=== PATIENT | female | born 1930 | race American Indian/Alaskan Native ===

== ENCOUNTER 2017-01-19 07:45 | Outpatient (CLI) | payer MEDICARE ==
--- NOTE | 2017-01-19 11:56 | Ultrasound Report ---
ULTRASOUND ABDOMEN COMPLETE: Technique: Transabdominal ultrasound with color Doppler interrogation. History: abdominal pain. Findings: The liver is normal size, contour and echotexture. There is a few shadowing gallstones within the gallbladder and a small amount of sludge. No abnormal distention, wall thickening or surrounding fluid. The CBD measures 5 mm. The visualized portions of the pancreas including the head and proximal body are within normal limits. The kidneys demonstrate no hydronephrosis or mass. Cortical thickness and echogenicity are within normal limits bilaterally. The spleen and aorta are within normal limits. No aneurysmal dilatation is noted. No ascites. The bladder is unremarkable. IMPRESSION: Cholelithiasis.
== END 2017-01-19 07:46 | disposition home or self-care (01) ==
LOC: US 07:45
PROVIDERS: ATTEND Internal Medicine
DX: K80.20 Calculus of gallbladder without cholecystitis without obstruction (principal)
CPT/HCPCS: 76700

== ENCOUNTER 2017-05-31 12:40 | Outpatient (CLI) | payer MEDICARE ==
--- NOTE | 2017-06-01 10:29 | Vascular Lab Report ---
Left Lower Extremity Venous Duplex Study: Reason for Exam: Pain of the left lower extremity. Comments on the Right: A limited duplex study was done of the proximal veins of the right lower extremity. All veins visualized are freely compressible without evidence of internal echogenicity. Flow is spontaneous and phasic throughout. No evidence of acute or chronic thrombus is seen in any of the vessels visualized. Comments on the Left: All veins visualized are freely compressible without evidence of internal echogenicity. Flow is spontaneous and phasic throughout. No evidence of acute or chronic thrombus is seen in any of the vessels visualized. Echogenic complex structure noted about the knee. Clinical correlation recommended. Impression: No evidence of acute or chronic deep venous thrombosis in the left lower extremity.
== END 2017-05-31 12:41 | disposition home or self-care (01) ==
LOC: VAS 12:40
PROVIDERS: ATTEND Specialist
DX: M79.605 Pain in left leg (principal); I10 Essential (primary) hypertension; E78.00 Pure hypercholesterolemia, unspecified; J18.9 Pneumonia, unspecified organism; D64.9 Anemia, unspecified

== ENCOUNTER 2017-09-14 14:29 | Emergency (ER) | payer MEDICARE ==
[2017-09-14] MEDS ORDERED: CATAPRES PO ONE (18:37)
[2017-09-14] MEDS ORDERED: CATAPRES ONE (18:39)
[2017-09-14] MEDS ORDERED: PERCOCET 5/325 ONE (18:39)
[2017-09-14] MEDS ORDERED: ZOFRAN ODT PO ONE (18:39)
[2017-09-14] MEDS ORDERED: DILAUDID IM ONE (18:39)
--- NOTE | 2017-09-14 19:57 | Emergency Department Report ---
ED General Adult HPI - General Chief complaint: Fall Stated complaint: LEFT HIP AND LEG PAIN Time Seen by Provider: 09/14/17 16:40 Source: patient, EMS Mode of arrival: Stretcher Limitations: Other - History of Present Illness Initial comments: Patient complains of chronic hip pain. She states that she's been told that she needs a hip replacement but she is not a good surgical candidate because of her age. She has had no acute injury. She really doesn't have any other acute complaint. -: year(s) Location: chest Radiation: non-radiation Severity scale (0 -10): 8 Quality: aching Consistency: constant Improves with: none Worsens with: none Associated Symptoms: denies other symptoms Treatments Prior to Arrival: none - Related Data Home Medications Medication Instructions Recorded Confirmed Last Taken ISOSORBIDE MONOnitrate [Imdur ER] 30 mg PO DAILY 07/24/15 07/24/15 07/24/15 09: 00 30mg Losartan [Cozaar] 100 mg PO QDAY 07/24/15 07/24/15 07/24/15 09:00 100mg amLODIPine [Norvasc] 5 mg PO DAILY 07/24/15 07/24/15 07/24/15 09:00 5mg glipiZIDE [glipiZIDE ER] 2.5 mg PO QAM 07/24/15 07/24/15 07/24/15 09:00 2.5mg metFORMIN [Glucophage] 500 mg PO QDAY 07/24/15 07/24/15 07/24/15 09:00 500 mg Previous Rx's Medication Instructions Recorded Last Taken Type Clopidogrel [Plavix] 75 mg PO QDAY #30 tablet 03/02/15 07/24/15 09:00 Rx 75mg Metoprolol [Lopressor TAB] 50 mg PO DAILY #30 tablet 03/02/15 07/24/15 09:00 Rx 50mg Simvastatin [Zocor TAB] 10 mg PO QHS #30 tablet 03/02/15 07/24/15 22:05 Rx 10mg Ondansetron [Zofran Odt] 4 mg PO Q6H PRN #7 tab.rapdis 09/14/17 Unknown Rx traMADol [Ultram] 50 mg PO Q6HR PRN #20 tablet 09/14/17 Unknown Rx Allergies Allergy/AdvReac Type Severity Reaction Status Date / Time aspirin Allergy Unknown Verified 01/07/14 11:35 oxycodone HCl [From Percocet] Allergy Unknown Verified 01/07/14 11:35 Penicillins Allergy Unknown Verified 01/07/14 11:35 codeine AdvReac Unknown Verified 01/07/14 11:35 ED Review of Systems ROS: Stated complaint: LEFT HIP AND LEG PAIN Other details as noted in HPI Constitutional: denies: chills, fever Eyes: denies: eye pain, eye discharge, vision change ENT: denies: ear pain, throat pain Respiratory: denies: cough, shortness of breath, wheezing Cardiovascular: denies: chest pain, palpitations Endocrine: no symptoms reported Gastrointestinal: denies: abdominal pain, nausea, diarrhea Genitourinary: denies: urgency, dysuria, discharge Musculoskeletal: as per HPI, arthralgia. denies: back pain, joint swelling Skin: denies: rash, lesions Neurological: denies: headache, weakness, paresthesias Psychiatric: denies: anxiety, depression Hematological/Lymphatic: denies: easy bleeding, easy bruising ED Past Medical Hx - Past Medical History Previous Medical History?: Yes Hx Hypertension: Yes Hx CVA: Yes (x2) Hx Diabetes: Yes Hx Arthritis: Yes Hx Headaches / Migraines: Yes Additional medical history: pacemaker - Surgical History Past Surgical History?: Yes Hx Pacemaker: Yes Additional Surgical History: hyst. - Social History Smoking Status: Never Smoker Substance Use Type: None - Medications Home Medications: Home Medications Medication Instructions Recorded Confirmed Last Taken Type Clopidogrel [Plavix] 75 mg PO QDAY #30 tablet 03/02/15 07/24/15 07/24/15 09:00 Rx 75mg Metoprolol [Lopressor TAB] 50 mg PO DAILY #30 tablet 03/02/15 07/24/15 07/24/15 09:00 Rx 50mg Simvastatin [Zocor TAB] 10 mg PO QHS #30 tablet 03/02/15 07/24/15 07/24/15 22: 05 Rx 10mg ISOSORBIDE MONOnitrate [Imdur ER] 30 mg PO DAILY 07/24/15 07/24/15 07/24/15 09: 00 History 30mg Losartan [Cozaar] 100 mg PO QDAY 07/24/15 07/24/15 07/24/15 09:00 History 100mg amLODIPine [Norvasc] 5 mg PO DAILY 07/24/15 07/24/15 07/24/15 09:00 History 5mg glipiZIDE [glipiZIDE ER] 2.5 mg PO QAM 07/24/15 07/24/15 07/24/15 09:00 History 2.5mg metFORMIN [Glucophage] 500 mg PO QDAY 07/24/15 07/24/15 07/24/15 09:00 History 500 mg Ondansetron [Zofran Odt] 4 mg PO Q6H PRN #7 tab.rapdis 09/14/17 Unknown Rx traMADol [Ultram] 50 mg PO Q6HR PRN #20 tablet 09/14/17 Unknown Rx ED Physical Exam - General Limitations: Other General appearance: alert, in no apparent distress - Head Head exam: Present: atraumatic, normocephalic - Eye Eye exam: Present: normal appearance. Absent: scleral icterus - ENT ENT exam: Present: mucous membranes moist - Neck Neck exam: Present: normal inspection - Respiratory Respiratory exam: Present: normal lung sounds bilaterally. Absent: respiratory distress - Cardiovascular Cardiovascular Exam: Present: regular rate, normal rhythm. Absent: systolic murmur, diastolic murmur, rubs, gallop - GI/Abdominal GI/Abdominal exam: Present: soft, normal bowel sounds. Absent: distended, tenderness, guarding, rebound - Extremities Exam Extremities exam: Present: other (there is some discomfort to 2 range of motion of the left hip which is somewhat and I'm certain chronically limited) - Back Exam Back exam: Present: normal inspection - Neurological Exam Neurological exam: Present: alert, oriented X3. Absent: CN II-XII intact, motor sensory deficit - Psychiatric Psychiatric exam: Present: normal affect, normal mood - Skin Skin exam: Present: warm, dry, intact, normal color. Absent: rash ED Course Vital Signs 09/14/17 09/14/17 09/14/17 14:47 14:51 15:00 Temperature 98.1 F Pulse Rate 89 Respiratory 16 Rate Blood Pressure 184/105 184/105 161/83 O2 Sat by Pulse 95 96 93 Oximetry 09/14/17 09/14/17 09/14/17 15:07 16:27 17:10 Temperature Pulse Rate Respiratory 16 Rate Blood Pressure 158/87 158/87 O2 Sat by Pulse 93 90 95 Oximetry 09/14/17 18:00 Temperature Pulse Rate Respiratory Rate Blood Pressure 174/103 O2 Sat by Pulse 91 Oximetry ED Medical Decision Making - Radiology Data interpreted by me: History of the hip showed extensive degenerative changes and probably aseptic necrosis. Critical care attestation.: If time is entered above; I have spent that time in minutes in the direct care of this critically ill patient, excluding procedure time. 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 Follow-up on your poorly controlled hypertension with her primary care doctor tomorrow. Rx as needed for pain. I' ll give you something for nausea as needed. I give you the name of our orthopedist should he like to consult with him. See referral. Prescriptions: Ondansetron [Zofran Odt] 4 mg PO Q6H PRN #7 tab.rapdis PRN Reason: Nausea traMADol [Ultram] 50 mg PO Q6HR PRN #20 tablet PRN Reason: Pain Referrals: JAIDA REDMOND MD [Primary Care Provider] - 3-5 Days BISHOP SHERIDAN MD [Staff Physician] - 3-5 Days Time of Disposition: 19:59
[2017-09-14] MEDS ORDERED: NORVASC PO ONE (19:58)
[2017-09-14 20:45] VITALS: BP 156/89
--- NOTE | 2017-09-15 07:20 | XRay Report ---
Left hip 2 views: History: Left hip pain. Findings: Marked narrowing of left hip joint. Sclerotic adjacent articular surfaces with subarticular cyst formation suggestive severe degenerative changes. 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 No fracture. Impression: Severe arthritic changes left hip.
== END 2017-09-14 20:46 | disposition home or self-care (01) ==
LOC: ED 14:29
DX: M87.9 Osteonecrosis, unspecified (principal); I10 Essential (primary) hypertension; M25.552 Pain in left hip; G89.29 Other chronic pain; E11.9 Type 2 diabetes mellitus without complications; G43.909 Migraine, unspecified, not intractable, without status migrainosus
CPT/HCPCS: 73502; 96372; 99283; J1170; Q0162

== ENCOUNTER 2018-05-01 08:22 | Day surgery (SDC) | payer MEDICARE ==
[2018-05-01] MEDS ORDERED: NACL 0.9% 500 ML 500 ML IV SCH (09:00)
[2018-05-01] MEDS ORDERED: HEPARIN/NS 5000 UNIT/500ML(CATH LAB) 1,000 ML IR ONE (09:20)
[2018-05-01] MEDS ORDERED: SUBLIMAZE ONE (09:21)
[2018-05-01] MEDS ORDERED: VERSED ONE (09:21)
[2018-05-01] MEDS ORDERED: HEPARIN 10,000 UNITS/10 ML ONE (09:21)
[2018-05-01] MEDS ORDERED: XYLOCAINE 2% INFILTRATI ONE (09:21)
[2018-05-01 09:35] LABS: Basophils % (Auto) 0.1 % (0.0-1.8); Hematocrit 39.1 % (30.3-42.9); Hemoglobin 12.7 gm/dl (10.1-14.3); Mean Corpuscular HGB Conc 33 % (30-34); Mean Corpuscular Hemoglobin 28 pg (28-32); Mean Corpuscular Volume 87 fl (79-97); Monocytes # (Auto) 0.1 K/mm3 (0.0-0.8); Monocytes % (Auto) 0.8 % (0.0-7.3); Platelet Count 272 K/mm3 (140-440); Red Blood Count 4.48 M/mm3 (3.65-5.03); Red Cell Distribution Width 14.7 % (13.2-15.2)
[2018-05-01 09:48] LABS: BUN/Creatinine Ratio 27; Blood Urea Nitrogen 24 mg/dL (7-17); Calcium 9.4 mg/dL (8.4-10.2); Hemolysis Index 50
[2018-05-01 10:08] LABS: INR 1.13 (0.87-1.13)
[2018-05-01] MEDS ORDERED: TYLENOL ONE (11:54)
[2018-05-01] MEDS ORDERED: NITROGLYCERIN SYRINGE 3 ML ONE (12:23)
[2018-05-01] MEDS ORDERED: CALAN ONE (12:26)
[2018-05-01] MEDS: APRESOLINE ONE ×2 (12:39→12:43)
--- NOTE | 2018-05-01 12:57 | Short Stay Summary ---
Short Stay Documentation Date of service: 05/01/18 - History H&P: obtained from office - Allergies and Medications Current Medications: Allergies aspirin Allergy (Verified 01/07/14 11:35) Unknown oxycodone HCl [From Percocet] Allergy (Verified 01/07/14 11:35) Unknown Penicillins Allergy (Verified 01/07/14 11:35) Unknown codeine Adverse Reaction (Verified 01/07/14 11:35) Unknown Home Medications Medication Instructions Recorded Confirmed Last Taken Type Clopidogrel [Plavix] 75 mg PO QDAY #30 tablet 03/02/15 05/01/18 04/29/18 Rx 75mg Metoprolol [Lopressor TAB] 50 mg PO DAILY #30 tablet 03/02/15 05/01/18 04/29/18 Rx 50mg Simvastatin [Zocor TAB] 10 mg PO QHS #30 tablet 03/02/15 05/01/18 04/29/18 Rx 10mg ISOSORBIDE MONOnitrate [Imdur ER] 60 mg PO DAILY 07/24/15 05/01/18 04/29/18 History 60mg amLODIPine [Norvasc] 5 mg PO DAILY 07/24/15 05/01/18 04/29/18 History 5mg metFORMIN [Glucophage] 500 mg PO QDAY 07/24/15 05/01/18 04/29/18 History 500mg Hydralazine HCl 50 mg PO BID 05/01/18 05/01/18 04/29/18 History 50mg Valsartan [Diovan] 320 mg PO DAILY 05/01/18 05/01/18 04/29/18 History 320mg Active Medications Acetaminophen (Tylenol) 650 mg PO ONCE ONE Stop: 05/01/18 13:01 Last Admin: 05/01/18 12:00 Dose: 650 mg Sodium Chloride (Nacl 0.9% 500 Ml) 500 mls @ 50 mls/hr IV DIRECT LADY Stop: 05/01/18 18:59 Last Admin: 05/01/18 09:37 Dose: 50 mls/hr - Brief post op/procedure progress note Date of procedure: 05/01/18 Pre-op diagnosis: angina Post-op diagnosis: same Procedure: see report Anesthesia: local Estimated blood loss: none Pathology: none - Disposition Condition at discharge: Good Disposition: DC-01 TO HOME OR SELFCARE - Discharge Diagnoses (1) Chest pain Status: Chronic Qualifiers: Chest pain type: chest pain due to myocardial ischemia Ischemic chest pain type: stable angina pectoris Qualified Code(s): I20.8 - Other forms of angina pectoris (2) CAD (coronary artery disease) Status: Chronic Qualifiers: Coronary Disease-Associated Artery/Lesion type: shawnee artery Tribe vs. transplanted heart: shawnee heart Associated angina: with stable angina Qualified Code(s): I25.118 - Atherosclerotic heart disease of sh[place]nee coronary artery with other forms of angina pectoris (3) Diabetes mellitus Status: Chronic Qualifiers: Diabetes mellitus type: type 2 Diabetes mellitus filler leaf cutter long insulin use: with filler leaf cutter long use Diabetes mellitus complication status: without complication Qualified Code(s): E11.9 - Type 2 diabetes mellitus without complications; Z79.4 - long term (current) use of insulin (4) Dyslipidemia Status: Chronic (5) HTN (hypertension) Status: Chronic Qualifiers: Hypertension type: essential hypertension Qualified Code(s): I10 - Essential (primary) hypertension (6) History of stroke Status: Chronic (7) Hyperlipidemia Status: Chronic Qualifiers: Hyperlipidemia type: mixed hyperlipidemia Qualified Code(s): E78.2 - Mixed hyperlipidemia Short Stay Discharge Plan Diet: low fat, low cholesterol, low salt, diabetic Wound: keep clean and dry Special Instructions: hold Metformin (for two days) Follow up with: LESLIE HUNTER MD [Primary Care Provider] - 7 Days
[2018-05-01] MEDS ORDERED: TYLENOL PO ONE (13:00)
--- NOTE | 2018-05-01 14:05 | Cardiac Catherization Report ---
LEFT HEART CATHETERIZATION REQUESTING PHYSICIAN: Dr Felder. CLINICAL INFORMATION: This is an 87-year-old -[place] female with history of pacemaker, hypertension, diabetes, cholesterol, chest pain and abnormal stress test with normal LV function; is here despite being on beta blockers and nitrates here for left heart catheterization. Procedure was done under moderate sedation. Total sedation time was 15 minutes, started at 12:29 p.m. and ended at 12:44 p.m. A total of 0.5 mg Versed and 25 mcg of fentanyl was given. Procedure was done via the right radial artery, sterile technique, local anesthesia, 6-Dominican radial sheath inserted. PROCEDURE FINDINGS: There was moderate tortuosity in the right innominate, but engaged to left system with a JL3.5 catheter. Left main is large and patent. The LAD is a medium caliber vessel, proximal is patent. The small diagonal 1, 2 and 3 that are patent in the mid LAD, there is a diffuse 20% to 30% vessel with medium caliber vessel. Circumflex and AV groove is a medium caliber vessel, was patent. Ramus is a small caliber vessel about 2.5 mm, has a proximal 70% to 80% lesion, also ostial OM1 has a 90% lesion. OM2 is patent and distal circ was patent, both are small caliber of 2.5 mm vessels. RCA is a large dominant vessel. It was patent with mild luminal irregularities with a focal lesion of 40% to 50% at mid portion. PDA and PLV are [id number] caliber vessel, was patent. LV gram done in BULGARIAN and GARRETT view shows normal LV function, LVEDP of 22 mmHg, LV is 175. Aortic is 170/78. No gradient across the aortic valve on pullback; 5-Dominican catheters were taken over a guidewire, 6-Dominican radial sheath was discontinued, radial band applied. No hematoma, no bleeding. SUMMARY: 1. Left main patent, LAD mid 20%. RCA large, dominant with a mid focal 40%. 2. The patient has ramus disease around 70% to 80% proximal and ostial OM ____ difficult for intervention as it might occlude the lumbee circ, bifurcating lesion. So, at this time, in view of the patient's aspirin allergy we will treat medically. If the patient fails medical therapy, we will consider PCI of the ramus and have the patient be on Brilinta. Continue BP control, hold metformin 48 hours. Discussed in detail with the patient and patient's family. JOB# [id number] LU/MARII
[2018-05-01 15:48] VITALS: BP 180/93
== END 2018-05-01 15:40 | disposition home or self-care (01) ==
LOC: CATHLABREC 08:22
PROVIDERS: ATTEND Internal Medicine Cardiovascular Disease
DX: I25.10 Atherosclerotic heart disease of native coronary artery without angina pectoris (principal); E11.9 Type 2 diabetes mellitus without complications; E78.5 Hyperlipidemia, unspecified; I10 Essential (primary) hypertension; I51.7 Cardiomegaly; I35.1 Nonrheumatic aortic (valve) insufficiency; M16.12 Unilateral primary osteoarthritis, left hip; Z95.0 Presence of cardiac pacemaker; Z90.6 Acquired absence of other parts of urinary tract; Z86.73 Personal history of transient ischemic attack (TIA), and cerebral infarction without residual deficits; Z90.710 Acquired absence of both cervix and uterus; Z79.899 Other long term (current) drug therapy; Z79.84 Long term (current) use of oral hypoglycemic drugs; Z88.0 Allergy status to penicillin; Z88.8 Allergy status to other drugs, medicaments and biological substances; Z88.6 Allergy status to analgesic agent; Z91.041 Radiographic dye allergy status
CPT/HCPCS: 36415; 80048; 85025; 85610; 85730; 93005; 93010; 93458; 99156; C1894; J0360; J1644; J2250; J3010; J7040; Q9967

== ENCOUNTER 2018-05-13 12:44 | Inpatient (IN) | payer MEDICARE ==
[2018-05-13 14:06] LABS: BUN/Creatinine Ratio 18; Blood Urea Nitrogen 14 mg/dL (7-17); Calcium 9.4 mg/dL (8.4-10.2); Hemolysis Index 3
[2018-05-13 14:11] LABS: Basophils # (Auto) 0.1 K/mm3 (0.0-0.1); Basophils % (Auto) 0.5 % (0.0-1.8); Eosinophils # (Auto) 0.1 K/mm3 (0.0-0.4); Hematocrit 34.3 % (30.3-42.9); Hemoglobin 11.6 gm/dl (10.1-14.3); Lymphocytes # (Auto) 2.1 K/mm3 (1.2-5.4); Lymphocytes % (Auto) 16.7 % (13.4-35.0); Mean Corpuscular HGB Conc 34 % (30-34); Mean Corpuscular Hemoglobin 29 pg (28-32); Mean Corpuscular Volume 87 fl (79-97); Monocytes # (Auto) 0.7 K/mm3 (0.0-0.8); Monocytes % (Auto) 5.2 % (0.0-7.3); Platelet Count 240 K/mm3 (140-440); Red Blood Count 3.95 M/mm3 (3.65-5.03); Red Cell Distribution Width 14.7 % (13.2-15.2)
[2018-05-13] MEDS ORDERED: NORMODYNE IV ONE (15:18)
--- NOTE | 2018-05-13 15:33 | XRay Report ---
FINAL REPORT PROCEDURE: XR CHEST 1V AP TECHNIQUE: Chest radiograph anteroposterior view. CPT 37722 HISTORY: Chest pain COMPARISON: No prior studies are available for comparison. FINDINGS: The heart is mildly enlarged. Dual-chamber pacemaker in place. Pulmonary vasculature not significantly distended. Minimal increased density in the lung bases suggesting a small amount of atelectasis. This is a little more prominent of the on the right than the left. No effusions are seen. No acute bony abnormalities are identified. IMPRESSION: Mild cardiomegaly. Dual-chamber pacemaker in place. Mild increased density in the bases right side greater than left likely representing a small amount of atelectasis. Subsegmental infiltrate in the right needs clinical exclusion..
--- NOTE | 2018-05-13 15:44 | Emergency Department Report ---
HPI - HPI HPI: 87-year-old female presents to the emergency department via EMS with complaint of some chest discomfort to the left side of the chest since this morning. She has the sensation that she is being shocked and says that she thinks her pacemaker is "turning off and on." She says that when that was happening she was feeling short of breath. She denies any fever, nausea, vomiting, back pain or diaphoresis. Patient has a history of CVA, diabetes, headaches, hypertension and a pacemaker. The patient had a heart catheterization done on 05/03 that showed mostly patent arteries with a 70 - 80% stenosis of the ramus and ostial OM. Her learn to swim instructor is Dr Perales. She has not taken anything for her symptoms prior to presentation today. <ROBBIE PANIAGUA - Last Filed: 05/13/18 15:53> <SCOTT BARRETO - Last Filed: 05/13/18 21:51> - General Chief Complaint: Chest Pain Time Seen by Provider: 05/13/18 13:20 ED Past Medical Hx - Past Medical History Hx Hypertension: Yes Hx CVA: Yes (x2) Hx Diabetes: Yes Hx Arthritis: Yes Hx Headaches / Migraines: Yes Additional medical history: pacemaker - Surgical History Hx Pacemaker: Yes Additional Surgical History: hyst. - Social History Smoking Status: Never Smoker <ROBBIE PANIAGUA - Last Filed: 05/13/18 15:53> <SCOTT BARRETO - Last Filed: 05/13/18 21:51> - Medications Home Medications: Home Medications Medication Instructions Recorded Confirmed Last Taken Type Clopidogrel [Plavix] 75 mg PO QDAY #30 tablet 03/02/15 05/13/18 05/13/18 08:00 Rx Metoprolol [Lopressor TAB] 50 mg PO DAILY #30 tablet 03/02/15 05/13/18 05/12/18 21:00 Rx Simvastatin [Zocor TAB] 10 mg PO QHS #30 tablet 03/02/15 05/13/18 05/12/18 21: 00 Rx ISOSORBIDE MONOnitrate [Imdur ER] 60 mg PO DAILY 07/24/15 05/13/18 05/12/18 21: 00 History amLODIPine [Norvasc] 5 mg PO DAILY 07/24/15 05/13/18 04/29/18 History 5mg metFORMIN [Glucophage] 500 mg PO QDAY 07/24/15 05/13/18 05/13/18 08:00 History Hydralazine HCl 50 mg PO BID 05/01/18 05/13/18 05/13/18 08:00 History Valsartan [Diovan] 320 mg PO DAILY 05/01/18 05/13/18 05/13/18 08:00 History ED Review of Systems ROS: Stated complaint: CHEST PAIN Other details as noted in HPI Comment: All other systems reviewed and negative Constitutional: denies: chills, fever Eyes: denies: eye pain, eye discharge, vision change ENT: denies: ear pain, throat pain Respiratory: denies: cough, shortness of breath, wheezing Cardiovascular: chest pain. denies: palpitations Gastrointestinal: denies: abdominal pain, nausea, diarrhea Genitourinary: denies: urgency, dysuria, discharge Musculoskeletal: denies: back pain, joint swelling, arthralgia Skin: denies: rash, lesions Neurological: denies: headache, weakness, paresthesias Psychiatric: denies: anxiety, depression <ROBBIE PANIAGUA - Last Filed: 05/13/18 15:53> ROS: Stated complaint: CHEST PAIN Other details as noted in HPI <SCOTT BARRETO - Last Filed: 05/13/18 21:51> Physical Exam - Physical Exam Vital Signs: Vital Signs 05/13/18 05/13/18 05/13/18 12:51 13:00 13:16 Temperature 98.6 F 98.7 F Pulse Rate 78 75 Respiratory 17 Rate Blood Pressure 154/91 168/92 Blood Pressure 168/92 [Left] O2 Sat by Pulse 96 96 95 Oximetry 05/13/18 05/13/18 05/13/18 13:30 13:46 14:00 Temperature Pulse Rate 76 75 75 Respiratory 26 H 18 22 Rate Blood Pressure 168/92 168/92 156/110 Blood Pressure [Left] O2 Sat by Pulse 96 97 97 Oximetry 05/13/18 05/13/18 14:16 14:30 Temperature Pulse Rate 79 77 Respiratory 28 H 21 Rate Blood Pressure 156/110 156/110 Blood Pressure [Left] O2 Sat by Pulse 96 96 Oximetry Physical Exam: GENERAL: The patient is well-developed well-nourished. HENT: Normocephalic. Atraumatic. Patient has moist mucous membranes. EYES: Extraocular motions are intact. Pupils equal reactive to light bilaterally. NECK: Supple. Trachea is midline. CHEST/LUNGS: Clear to auscultation. There is no respiratory distress noted. HEART/CARDIOVASCULAR: Regular. There is no tachycardia. There is no murmur. ABDOMEN: Abdomen is soft, nontender. Patient has normal bowel sounds. There is no abdominal distention. SKIN: Skin is warm and dry. NEURO: The patient is awake, alert The patient is cooperative. The patient has no focal neurologic deficits. The patient has normal speech. MUSCULOSKELETAL: There is no tenderness or deformity. There is no limitation range of motion. There is no evidence of acute injury. <ROBBIE PANIAGUA - Last Filed: 05/13/18 15:53> - Physical Exam Vital Signs: Vital Signs 05/13/18 05/13/18 05/13/18 12:51 13:00 13:16 Temperature 98.6 F 98.7 F Pulse Rate 78 75 Respiratory 17 Rate Blood Pressure 154/91 168/92 Blood Pressure 168/92 [Left] O2 Sat by Pulse 96 96 95 Oximetry 05/13/18 05/13/18 05/13/18 13:30 13:46 14:00 Temperature Pulse Rate 76 75 75 Respiratory 26 H 18 22 Rate Blood Pressure 168/92 168/92 156/110 Blood Pressure [Left] O2 Sat by Pulse 96 97 97 Oximetry 05/13/18 05/13/18 05/13/18 14:16 14:30 14:46 Temperature Pulse Rate 79 77 77 Respiratory 28 H 21 13 Rate Blood Pressure 156/110 156/110 156/110 Blood Pressure [Left] O2 Sat by Pulse 96 96 97 Oximetry 05/13/18 05/13/18 05/13/18 15:00 15:16 15:30 Temperature Pulse Rate 84 76 76 Respiratory 28 H 33 H 28 H Rate Blood Pressure 176/107 182/108 182/108 Blood Pressure [Left] O2 Sat by Pulse 96 97 97 Oximetry 05/13/18 15:55 Temperature Pulse Rate 75 Respiratory Rate Blood Pressure 180/107 Blood Pressure [Left] O2 Sat by Pulse Oximetry <SCOTT BARRETO - Last Filed: 05/13/18 21:51> ED Course Vital Signs 05/13/18 05/13/18 05/13/18 12:51 13:00 13:16 Temperature 98.6 F 98.7 F Pulse Rate 78 75 Respiratory 17 Rate Blood Pressure 154/91 168/92 Blood Pressure 168/92 [Left] O2 Sat by Pulse 96 96 95 Oximetry 05/13/18 05/13/18 05/13/18 13:30 13:46 14:00 Temperature Pulse Rate 76 75 75 Respiratory 26 H 18 22 Rate Blood Pressure 168/92 168/92 156/110 Blood Pressure [Left] O2 Sat by Pulse 96 97 97 Oximetry 05/13/18 05/13/18 14:16 14:30 Temperature Pulse Rate 79 77 Respiratory 28 H 21 Rate Blood Pressure 156/110 156/110 Blood Pressure [Left] O2 Sat by Pulse 96 96 Oximetry - Consultations Consultation #1: 05/13/18 15:[address] Banerjee, cardiology, regarding this patient's presentation. he says the pacemaker is biotronik. He looked at the heart cath results and says that the 70-80% ramus and ostial OM should not cause this patient any discomfort and that if the patient is stable that she can be discharged home to follow up outpatient with cardiology. <ROBBIE PANIAGUA S - Last Filed: 05/13/18 15:53> Vital Signs 05/13/18 05/13/18 05/13/18 12:51 13:00 13:16 Temperature 98.6 F 98.7 F Pulse Rate 78 75 Respiratory 17 Rate Blood Pressure 154/91 168/92 Blood Pressure 168/92 [Left] O2 Sat by Pulse 96 96 95 Oximetry 05/13/18 05/13/18 05/13/18 13:30 13:46 14:00 Temperature Pulse Rate 76 75 75 Respiratory 26 H 18 22 Rate Blood Pressure 168/92 168/92 156/110 Blood Pressure [Left] O2 Sat by Pulse 96 97 97 Oximetry 05/13/18 05/13/18 05/13/18 14:16 14:30 14:46 Temperature Pulse Rate 79 77 77 Respiratory 28 H 21 13 Rate Blood Pressure 156/110 156/110 156/110 Blood Pressure [Left] O2 Sat by Pulse 96 96 97 Oximetry 05/13/18 05/13/18 05/13/18 15:00 15:16 15:30 Temperature Pulse Rate 84 76 76 Respiratory 28 H 33 H 28 H Rate Blood Pressure 176/107 182/108 182/108 Blood Pressure [Left] O2 Sat by Pulse 96 97 97 Oximetry 05/13/18 15:55 Temperature Pulse Rate 75 Respiratory Rate Blood Pressure 180/107 Blood Pressure [Left] O2 Sat by Pulse Oximetry - Reevaluation(s) Reevaluation #1: 05/13/18 16:57 Patient was signed out to me by Dr. Paniagua, pending labs, reevaluation and disposition. Patient complained of shortness of breath and chest pain with productive cough. Reevaluation #2: 05/13/18 21:50 Patient care was discussed with the hospitalist on-call Dr. Clara Schaeffer. She' ll admit patient to the hospital for further evaluation and management. <SCOTT BARRETO - Last Filed: 05/13/18 21:51> ED Medical Decision Making - Lab Data Result diagrams: 05/13/18 13:30 05/13/18 13:30 - EKG Data -: EKG Interpreted by Me EKG shows normal: sinus rhythm, axis (left axis deviation), intervals, QRS complexes (LVH), ST-T waves Rate: normal - EKG Data When compared to previous EKG there are: no significant change Interpretation: unchanged when compared t (05/03/18) <ROBBIE PANIAGUA - Last Filed: 05/13/18 15:53> - Lab Data Result diagrams: 05/13/18 13:30 05/13/18 13:30 <SCOTT BARRETO - Last Filed: 05/13/18 21:51> Critical care attestation.: If time is entered above; I have spent that time in minutes in the direct care of this critically ill patient, excluding procedure time. <ROBBIE PANIAGUA - Last Filed: 05/13/18 15:53> Critical care attestation.: If time is entered above; I have spent that time in minutes in the direct care of this critically ill patient, excluding procedure time. <SCOTT BARRETO - Last Filed: 05/13/18 21:51> ED Disposition Is pt being admited?: No <ROBBIE PANIAGUA - Last Filed: 05/13/18 15:53> Is pt being admited?: Yes Time of Disposition: 21:51 <SCOTT BARRETO - Last Filed: 05/13/18 21:51> Clinical Impression: Pacemaker, Shortness of breath HTN (hypertension) Qualifiers: Hypertension type: essential hypertension Qualified Code(s): I10 - Essential ( primary) hypertension Chest pain Qualifiers: Chest pain type: unspecified Qualified Code(s): R07.9 - Chest pain, unspecified Pneumonia Qualifiers: Pneumonia type: due to unspecified organism Laterality: right Lung location: lower lobe of lung Qualified Code(s): J18.1 - Lobar pneumonia, unspecified organism Disposition: OP ADMIT IP TO THIS HOSP Condition: Stable Instructions: Chest Pain (ED), Bacterial Pneumonia (ED), Hypertension (ED) Additional Instructions: Please follow up with your primary care physician and with the learn to swim instructor in the next few days. Please return to the emergency department with any return of your chest pain, worsening of your symptoms or any acute distress. Referrals: JOSE MANUEL PERALES MD [Staff Physician] - 2-3 Days PRIMARY CARE, [Primary Care Provider] - 2-3 Days
[2018-05-13] MEDS ORDERED: NITRO-BID 2% TP ONE (16:42)
[2018-05-13] MEDS ORDERED: LEVAQUIN 750MG/150ML 750 MG/150 ML BAG IV ONE (16:42)
[2018-05-13 17:23] LABS: INR 1.05 (0.87-1.13)
[2018-05-13 17:24] LABS: Partial Thromboplastin Time 28.4 Sec. (24.2-36.6)
[2018-05-13 18:39] LABS: Bilirubin,Urine NEG (Negative); Blood,Urine NEG (Negative); Color,Urine Yellow (Yellow); Mucus,Urine FEW /HPF; Urobilinogen,Urine < 2.0 mg/dL (<2.0)
[2018-05-13 19:05] LABS: Alanine Aminotransferase 12 units/L (7-56); Bilirubin,Direct < 0.2 mg/dL (0-0.2)
[2018-05-13] MEDS ORDERED: NACL 0.9% 1000 ML 1,000 ML IV ONE ×2 (19:28)
--- NOTE | 2018-05-13 20:36 | Cat Scan Report ---
FINAL REPORT PROCEDURE: CT ABDOMEN PELVIS W CON TECHNIQUE: Computerized axial tomography of the abdomen and pelvis was performed after the IV injection of iodinated nonionic contrast. HISTORY: abdominal pain COMPARISON: No prior studies are available for comparison. FINDINGS: Lower Lung goldsmith: Small amount of atelectasis suspected in the lung bases. Cardiac leads visualized in the right side of the heart. Upper Abdomen: Gallbladder is distended. Calcified gallstone is visualized in the gallbladder. Gallbladder is otherwise unremarkable. The liver showed no focal abnormalities. The adrenal glands, spleen are unremarkable. Pancreatic duct is mildly prominent. The pancreas is otherwise unremarkable. No masses are identified Kidneys, Ureters and Urinary bladder: Low-density nodules seen in the renal cortex of the lower 3rd of the left kidney which appears to represent a small renal cortical cyst. The kidneys, the ureters and urinary bladder otherwise are unremarkable. Retroperitoneum: Atherosclerotic changes are seen in the abdominal aorta and iliac arteries. No aneurysm is visualized. Nonspecific subcentimeter lymph nodes are seen in the retroperitoneum. No pathologically enlarged lymph nodes are identified. Bowel: Mild diverticulosis seen in the sigmoid colon without evidence of diverticulitis. Bowel loops otherwise unremarkable. Normal-appearing appendix is seen in the right lower quadrant. Reproductive organs: Uterus is surgically absent. No abnormal adnexal masses are seen Other: No acute bony abnormalities are identified. There is mild retrolisthesis L2 in relation L3. I do not see evidence of spondylolysis. There is however advanced facet arthritis visualized in the lower lumbar spine. Severe osteoarthritic changes are present in the left hip. IMPRESSION: Cholelithiasis. Gallbladder is distended otherwise unremarkable. Mild colonic diverticulosis without evidence of diverticulitis. Prior hysterectomy. Degenerative changes lumbar spine with mild retrolisthesis L2 in relation L3. Severe osteoarthritic changes left hip.
--- NOTE | 2018-05-13 20:44 | Cat Scan Report ---
FINAL REPORT PROCEDURE: CT ANGIO CHEST TECHNIQUE: Computerized tomographic angiography of the chest was performed during the IV injection of iodinated nonionic contrast including image processing. The image data was postprocessed using 2-dimensional multiplanar reformatted (MPR) and 3-dimensional (MIP and/or volume rendered) techniques. HISTORY: shortness of breath COMPARISON: No prior studies are available for comparison. FINDINGS: Pulmonary outflow tract, right and left main pulmonary arteries and their proximal branches: Clear, no filling defects seen to suggest pulmonary embolus. Pericardium: No evidence of pericardial effusion. Thoracic aorta: Atherosclerotic changes seen in the thoracic aorta. There is borderline aneurysmal dilatation of the ascending thoracic aorta measuring 4 centimeter. No dissection visualized Coronary arteries: Are partially calcified indicating atherosclerotic disease. Mediastinum and hilar regions: Nonspecific subcentimeter lymph nodes are visualized. No pathologically enlarged lymph nodes or masses are identified. Lung Carrillo: There is a small amount of patchy atelectasis in the lung bases. Small patchy alveolar densities are seen medially in the right middle lobe suggesting atelectasis or possibly a subsegmental infiltrate seen on axial image 75 series 2. No masses are identified. There is no effusions. No pneumothorax visualized. Upper abdomen: No acute or focal abnormality is seeen. Other: No acute bony abnormalities are seen. Advanced osteoarthritic changes partially visualized in the right shoulder. IMPRESSION: No evidence of pulmonary embolus. Atherosclerotic changes coronary artery. Borderline aneurysmal dilatation ascending thoracic aorta. Mild patchy alveolar density right middle lobe as described. This may represent atelectasis. I cannot exclude a subsegmental infiltrate. Small amount of dependent atelectasis also visualized.
[2018-05-13] MEDS ORDERED: ZOFRAN IV ONE (21:25)
[2018-05-13] MEDS ORDERED: SODIUM CHLORIDE FLUSH SYRINGE 10 ML IV PRN (22:25)
[2018-05-13] MEDS ORDERED: D50W (25GM) Syringe IV PRN (22:25)
[2018-05-13] MEDS ORDERED: ZOFRAN IV PRN (22:25)
--- NOTE | 2018-05-13 22:28 | History and Physical Report ---
History of Present Illness Date of examination: 05/13/18 History of present illness: 87-year-old woman with a history of hypertension, diabetes, CVA causing emergency room with complaints of shortness of breath, fever and a cough. She does not know the color of the phlegm. Also complaining of chest pain on the left anterior chest and under the armpit which she describes as a sharp pain, intermittent in nature, 30 minutes, no radiation, she cannot identify exacerbating or relieving factors. Admits to nausea, shortness of breath, no diaphoresis or palpitation or angina stress test last week. Review of systems Constitutional: no weight loss, chills, fever Ears, eyes, nose, mouth and throat: no nasal congestion, no nasal discharge, no sinus pressure, no vision change, no red eye. Neck: No neck pain or rigidity. Cardiovascular: no palpitations Respiratory:+ cough, shortness of breath Gastrointestinal: no abdominal pain hematochezia Genitourinary : no frequency , no hematuria Musculoskeletal: no joint swelling or muscle ache Integumentary: no rash, no pruritis Neurological: no parathesias, no numbness, no focal weakness Endocrine: no cold or heat intolerance, no polyuria or polydipsia Hematologic/Lymphatic: no easy bruising, no easy bleeding, no gland swelling Allergic/Immunologic: no urticaria, no angioedema. PAST MEDICAL HISTORY: hypertension, diabetes, CVA PAST SURGICAL HISTORY: Hysterectomy, pacemaker SOCIAL HISTORY: No alcohol, no drugs, tobacco FAMILY HISTORY: Hypertension Medications and Allergies Allergies Allergy/AdvReac Type Severity Reaction Status Date / Time aspirin Allergy Unknown Verified 01/07/14 11:35 oxycodone HCl [From Percocet] Allergy Unknown Verified 01/07/14 11:35 Penicillins Allergy Unknown Verified 01/07/14 11:35 codeine AdvReac Unknown Verified 01/07/14 11:35 Home Medications Medication Instructions Recorded Confirmed Last Taken Type Clopidogrel [Plavix] 75 mg PO QDAY #30 tablet 03/02/15 05/13/18 05/13/18 08:00 Rx Metoprolol [Lopressor TAB] 50 mg PO DAILY #30 tablet 03/02/15 05/13/18 05/12/18 21:00 Rx Simvastatin [Zocor TAB] 10 mg PO QHS #30 tablet 03/02/15 05/13/18 05/12/18 21: 00 Rx ISOSORBIDE MONOnitrate [Imdur ER] 60 mg PO DAILY 07/24/15 05/13/18 05/12/18 21: 00 History amLODIPine [Norvasc] 5 mg PO DAILY 07/24/15 05/13/18 04/29/18 History 5mg metFORMIN [Glucophage] 500 mg PO QDAY 07/24/15 05/13/18 05/13/18 08:00 History Hydralazine HCl 50 mg PO BID 05/01/18 05/13/18 05/13/18 08:00 History Valsartan [Diovan] 320 mg PO DAILY 05/01/18 05/13/18 05/13/18 08:00 History Exam - Physical Exam Narrative exam: Gen. appearance: Patient lying in bed, no apparent distress HEENT: Normocephalic, atraumatic, pupils equally round and reactive to light, extraocular movement intact, and no sclericterus,. No JVD or thyromegaly or nodule,neck supple, no carotid bruit ,mucous membranes moist, no exudate or erythema Heart: S1, S2, regular rate and rhythm Lungs crackles on the right breathing comfortable Abdomen: Positive bowel sounds, non-tender, nondistended, no organomegaly Extremity:no edema cyanosis, clubbing Skin: no rash, dry, warm Neuro: Oriented 3, cranial nerves II-12 intact, speech is fluent, motor and sensory intact - Constitutional Vitals: Temp Pulse Resp BP Pulse Ox 98.7 F 83 20 168/82 98 05/13/18 13:16 05/13/18 18:30 05/13/18 18:30 05/13/18 18:30 05/13/18 18:30 Results - Labs CBC & Chem 7: 05/13/18 13:30 05/13/18 13:30 Labs: Abnormal lab results 05/13/18 05/13/18 05/13/18 Range/Units 13:30 13:30 16:44 WBC 12.8 H (4.5-11.0) K/mm3 Seg Neutrophils % 76.6 H (40.0-70.0) % Seg Neutrophils # 9.8 H (1.8-7.7) K/mm3 D-Dimer 435.85 H (0-234) ng/mlDDU Glucose 130 H (65-100) mg/dL Lactic Acid (0.7-2.0) mmol/L NT-Pro-B Natriuret Pep (0-900) pg/mL 05/13/18 05/13/18 05/13/18 Range/Units 18:05 18:05 19:55 WBC (4.5-11.0) K/mm3 Seg Neutrophils % (40.0-70.0) % Seg Neutrophils # (1.8-7.7) K/mm3 D-Dimer (0-234) ng/mlDDU Glucose (65-100) mg/dL Lactic Acid 2.90 H* 2.90 H* (0.7-2.0) mmol/L NT-Pro-B Natriuret Pep 1678 H (0-900) pg/mL - Imaging and Cardiology EKG: image reviewed Chest x-ray: image reviewed CT scan - abdomen: report reviewed CT scan - chest: report reviewed CT scan - pelvis: report reviewed Assessment and Plan Assessment Clean according pneumonia Chest, rule out ACS Hypertension Diabetes type 2 History of CVA Plan Admit to medicine start IV Levaquin, follow cultures check cardiac enzymes, consult cardiology Check fingersticks and initiate insulin sliding-scale DVT prophylaxis
[2018-05-13 23:56] LABS: Creatine Kinase MB 1.2 ng/mL (0.0-4.0)
[2018-05-14] MEDS ORDERED: BENADRYL PO ONE (01:24)
[2018-05-14] MEDS ORDERED: BANOPHEN PO ONE (01:36)
[2018-05-14 05:29] LABS: Basophils % (Auto) 0.4 % (0.0-1.8); Eosinophils # (Auto) 0.1 K/mm3 (0.0-0.4); Eosinophils % (Auto) 0.9 % (0.0-4.3); Hematocrit 32.9 % (30.3-42.9); Hemoglobin 10.6 gm/dl (10.1-14.3); Lymphocytes # (Auto) 2.9 K/mm3 (1.2-5.4); Lymphocytes % (Auto) 25.9 % (13.4-35.0); Mean Corpuscular HGB Conc 32 % (30-34); Mean Corpuscular Hemoglobin 29 pg (28-32); Mean Corpuscular Volume 89 fl (79-97); Monocytes # (Auto) 0.8 K/mm3 (0.0-0.8); Monocytes % (Auto) 7.4 % (0.0-7.3); Platelet Count 238 K/mm3 (140-440); Red Blood Count 3.72 M/mm3 (3.65-5.03); Red Cell Distribution Width 14.7 % (13.2-15.2)
[2018-05-14 05:46] LABS: Creatine Kinase MB 1.5 ng/mL (0.0-4.0)
[2018-05-14 05:49] LABS: BUN/Creatinine Ratio 14; Blood Urea Nitrogen 11 mg/dL (7-17); Calcium 8.5 mg/dL (8.4-10.2); Hemolysis Index 8
[2018-05-14] MEDS: HumaLOG SUB-Q SCH ×3 (08:00→17:06)
[2018-05-14] MEDS: SODIUM CHLORIDE FLUSH SYRINGE 10 ML IV SCH ×2 (10:15→22:10)
[2018-05-14] MEDS: LOVENOX SUB-Q SCH (10:15)
--- NOTE | 2018-05-14 11:11 | Progress Note ---
Assessment and Plan Assessment and plan: CAP. Cont. IV Levaquin, follow cultures. Serial CXR. Chest pain. Etiology prob pleuritic from above. Cardiology following. I d/w Dr. Banerjee that reoprts no intervention at this time. PT with recent eval that was negative Hypertension. Cont anti-hypertensive meds Diabetes type 2. Accuchecks and SSRI History of CVA. History Interval history: 87-year-old woman with a history of hypertension, diabetes, CVA causing emergency room with complaints of shortness of breath, fever and a cough. Hospitalist Physical - Constitutional Vitals: Temp Pulse Resp BP Pulse Ox 99.2 F 76 26 H 136/67 94 05/14/18 10:49 05/14/18 10:00 05/14/18 10:00 05/14/18 10:00 05/14/18 10:49 General appearance: Present: no acute distress, well-nourished - EENT Eyes: Present: PERRL, EOM intact ENT: hearing intact, clear oral mucosa, dentition normal - Neck Neck: Present: supple, normal ROM - Respiratory Respiratory effort: normal Respiratory: bilateral: diminished, rhonchi - Cardiovascular Rhythm: regular Heart Sounds: Present: S1 & S2. Absent: gallop, rub - Extremities Extremities: no ischemia, No edema, Full ROM - Abdominal General gastrointestinal: soft, non-tender, non-distended, normal bowel sounds - Integumentary Integumentary: Present: clear, warm, dry - Neurologic Neurologic: CNII-XII intact, moves all extremities Results - Labs CBC & Chem 7: 05/14/18 04:57 05/14/18 04:57 Labs: Laboratory Last Values WBC 11.0 K/mm3 (4.5-11.0) 05/14/18 04:57 RBC 3.72 M/mm3 (3.65-5.03) 05/14/18 04:57 Hgb 10.6 gm/dl (10.1-14.3) 05/14/18 04:57 Hct 32.9 % (30.3-42.9) 05/14/18 04:57 MCV 89 fl (79-97) 05/14/18 04:57 MCH 29 pg (28-32) 05/14/18 04:57 MCHC 32 % (30-34) 05/14/18 04:57 RDW 14.7 % (13.2-15.2) 05/14/18 04:57 Plt Count 238 K/mm3 (140-440) 05/14/18 04:57 Lymph % (Auto) 25.9 % (13.4-35.0) 05/14/18 04:57 Tate % (Auto) 7.4 % (0.0-7.3) H 05/14/18 04:57 Eos % (Auto) 0.9 % (0.0-4.3) 05/14/18 04:57 Baso % (Auto) 0.4 % (0.0-1.8) 05/14/18 04:57 Lymph # 2.9 K/mm3 (1.2-5.4) 05/14/18 04:57 Tate # 0.8 K/mm3 (0.0-0.8) 05/14/18 04:57 Eos # 0.1 K/mm3 (0.0-0.4) 05/14/18 04:57 Baso # 0.0 K/mm3 (0.0-0.1) 05/14/18 04:57 Seg Neutrophils % 65.4 % (40.0-70.0) 05/14/18 04:57 Seg Neutrophils # 7.2 K/mm3 (1.8-7.7) 05/14/18 04:57 PT 14.3 Sec. (12.2-14.9) 05/13/18 16:44 INR 1.05 (0.87-1.13) 05/13/18 16:44 APTT 28.4 Sec. (24.2-36.6) 05/13/18 16:44 D-Dimer 435.85 ng/mlDDU (0-234) H 05/13/18 16:44 Sodium 143 mmol/L (137-145) 05/14/18 04:57 Potassium 3.9 mmol/L (3.6-5.0) 05/14/18 04:57 Chloride 107.9 mmol/L (98-107) H 05/14/18 04:57 Carbon Dioxide 19 mmol/L (22-30) L 05/14/18 04:57 Anion Gap 20 mmol/L 05/14/18 04:57 BUN 11 mg/dL (7-17) 05/14/18 04:57 Creatinine 0.8 mg/dL (0.7-1.2) 05/14/18 04:57 Estimated GFR > 60 ml/min 05/14/18 04:57 BUN/Creatinine Ratio 14 % 05/14/18 04:57 Glucose 137 mg/dL (65-100) H 05/14/18 04:57 Lactic Acid 2.50 mmol/L (0.7-2.0) H* 05/14/18 04:57 Calcium 8.5 mg/dL (8.4-10.2) 05/14/18 04:57 Total Bilirubin 0.40 mg/dL (0.1-1.2) 05/13/18 18:05 Direct Bilirubin < 0.2 mg/dL (0-0.2) 05/13/18 18:05 Indirect Bilirubin 0.2 mg/dL 05/13/18 18:05 AST 16 units/L (5-40) 05/13/18 18:05 ALT 12 units/L (7-56) 05/13/18 18:05 Alkaline Phosphatase 43 units/L (35-129) 05/13/18 18:05 Total Creatine Kinase 91 units/L (30-135) 05/14/18 04:57 CK-MB (CK-2) 1.5 ng/mL (0.0-4.0) 05/14/18 04:57 CK-MB (CK-2) Rel Index 1.6 (0-4) 05/14/18 04:57 Troponin T 0.016 ng/mL (0.00-0.029) 05/14/18 04:57 NT-Pro-B Natriuret Pep 1678 pg/mL (0-900) H 05/13/18 18:05 Total Protein 7.3 g/dL (6.3-8.2) 05/13/18 18:05 Albumin 4.0 g/dL (3.9-5) 05/13/18 18:05 Albumin/Globulin Ratio 1.2 % 05/13/18 18:05 Lipase 33 units/L (13-60) 05/13/18 18:05 Urine Color Yellow (Yellow) 05/13/18 17:10 Urine Turbidity Clear (Clear) 05/13/18 17:10 Urine pH 5.0 (5.0-7.0) 05/13/18 17:10 Ur Specific [place] 1.018 (1.003-1.030) 05/13/18 17:10 Urine Protein 30 mg/dl mg/dL (Negative) 05/13/18 17:10 Urine Glucose (UA) Neg mg/dL (Negative) 05/13/18 17:10 Urine Ketones Neg mg/dL (Negative) 05/13/18 17:10 Urine Blood Neg (Negative) 05/13/18 17:10 Urine Nitrite Neg (Negative) 05/13/18 17:10 Urine Bilirubin Neg (Negative) 05/13/18 17:10 Urine Urobilinogen < 2.0 mg/dL (<2.0) 05/13/18 17:10 Ur Leukocyte Esterase Tr (Negative) 05/13/18 17:10 Urine WBC (Auto) 2.0 /HPF (0.0-6.0) 05/13/18 17:10 Urine RBC (Auto) 1.0 /HPF (0.0-6.0) 05/13/18 17:10 U Epithel Cells (Auto) 1.0 /HPF (0-13.0) 05/13/18 17:10 Urine Mucus Few /HPF 05/13/18 17:10
--- NOTE | 2018-05-14 12:05 | Consultation ---
History of Present Illness Consult date: 05/14/18 Requesting physician: ISABELLE KELLER Consult reason: chest pain History of present illness: This is an 87-year-old female with history of CVA hypertension diabetes cholesterol patient has known coronary disease cardiac cath in May 01 revealed left main. LAD patent ramus proximal 70% lesion circumflex pain and ostial OM1 80% RCA May 20 to 30 percent with normal LV function patient was deemed to treat medically given bifurcation lesions. Patient was brought in by family for increased shortness of breath last few days with cough and sputum production found with elevated lactate level patient has some chest pain at rest worse with inspiration. Abdomen secondary to coughing patient denies any melena or seizures or syncope or palpitations Past History Past Medical History: CAD, diabetes, hypertension, hyperlipidemia, stroke Past Surgical History: hysterectomy, Other (pacemaker Biotronik) Social history: denies: no significant social history Family history: denies: no significant family history Medications and Allergies Allergies Allergy/AdvReac Type Severity Reaction Status Date / Time aspirin Allergy Unknown Verified 01/07/14 11:35 oxycodone HCl [From Percocet] Allergy Unknown Verified 01/07/14 11:35 Penicillins Allergy Unknown Verified 01/07/14 11:35 codeine AdvReac Unknown Verified 01/07/14 11:35 Home Medications Medication Instructions Recorded Confirmed Last Taken Type Clopidogrel [Plavix] 75 mg PO QDAY #30 tablet 03/02/15 05/13/18 05/13/18 08:00 Rx Metoprolol [Lopressor TAB] 50 mg PO DAILY #30 tablet 03/02/15 05/13/18 05/12/18 21:00 Rx Simvastatin [Zocor TAB] 10 mg PO QHS #30 tablet 03/02/15 05/13/18 05/12/18 21: 00 Rx ISOSORBIDE MONOnitrate [Imdur ER] 60 mg PO DAILY 07/24/15 05/13/18 05/12/18 21: 00 History amLODIPine [Norvasc] 5 mg PO DAILY 07/24/15 05/13/18 04/29/18 History 5mg metFORMIN [Glucophage] 500 mg PO QDAY 07/24/15 05/13/18 05/13/18 08:00 History Hydralazine HCl 50 mg PO BID 05/01/18 05/13/18 05/13/18 08:00 History Valsartan [Diovan] 320 mg PO DAILY 05/01/18 05/13/18 05/13/18 08:00 History Active Meds: Active Medications Acetaminophen (Tylenol) 650 mg PO Q4H PRN PRN Reason: Pain MILD(1-3)/Fever >100.5/KOEHLER Amlodipine Besylate (Norvasc) 5 mg PO DAILY [facility] Clopidogrel Bisulfate (Plavix) 75 mg PO QDAY [facility] Dextrose (D50w (25gm) Syringe) 50 ml IV PRN PRN PRN Reason: Hypoglycemia Enoxaparin Sodium (Lovenox) 40 mg SUB-Q QDAY [facility] Insulin Human Lispro (Humalog) 0 unit SUB-Q ACHS [facility]; Protocol Last Admin: 05/14/18 08:00 Dose: Not Given Isosorbide Mononitrate (Imdur) 60 mg PO DAILY [facility] Metformin HCl (Glucophage) 500 mg PO QDAY [facility] Metoprolol Tartrate (Lopressor) 50 mg PO DAILY [facility] Miscellaneous Medication (Hydralazine Hcl [Hydralazine Hcl]) 50 mg PO BID [facility] Miscellaneous Medication (Simvastatin) 10 mg PO QHS [facility] Ondansetron HCl (Zofran) 4 mg IV Q4H PRN PRN Reason: Nausea And Vomiting Sodium Chloride (Sodium Chloride Flush Syringe 10 Ml) 10 ml IV BID [facility] Sodium Chloride (Sodium Chloride Flush Syringe 10 Ml) 10 ml IV PRN PRN PRN Reason: LINE FLUSH Review of Systems All systems: negative (as per the HPI) Physical Examination Vital Signs Temp Pulse BP Pulse Ox 98.6 F 78 154/91 96 05/13/18 12:51 05/13/18 12:51 05/13/18 12:51 05/13/18 12:51 General appearance: no acute distress, well-nourished HEENT: Positive: PERRL, Mucus Membranes Moist Neck: Positive: neck supple, trachea midline Cardiac: Positive: Reg Rate and Rhythm, S1/S2. Negative: Audible Murmur Lungs: Positive: Rhonchi Neuro: Positive: Grossly Intact Abdomen: Positive: Soft, Active Bowel Sounds. Negative: Tender, Distended Female genitourinary: deferred Skin: Positive: Clear Incision: Cardiac Cath Site Musculoskeletal: No Pain, Normal Range of Motion Extremities: Present: normal. Absent: edema Results 05/14/18 04:57 05/14/18 04:57 Cardiac Enzymes 05/13/18 05/13/18 05/14/18 Range/Units 18:05 23:26 04:57 AST 16 (5-40) units/L CK-MB (CK-2) 1.2 1.5 (0.0-4.0) ng/mL Coagulation 05/13/18 Range/Units 16:44 PT 14.3 (12.2-14.9) Sec. INR 1.05 (0.87-1.13) APTT 28.4 (24.2-36.6) Sec. CBC 05/13/18 05/14/18 Range/Units 13:30 04:57 WBC 12.8 H 11.0 (4.5-11.0) K/mm3 RBC 3.95 3.72 (3.65-5.03) M/mm3 Hgb 11.6 10.6 (10.1-14.3) gm/dl Hct 34.3 32.9 (30.3-42.9) % Plt Count 240 238 (140-440) K/mm3 Lymph # 2.1 2.9 (1.2-5.4) K/mm3 [place] # 0.7 0.8 (0.0-0.8) K/mm3 Eos # 0.1 0.1 (0.0-0.4) K/mm3 Baso # 0.1 0.0 (0.0-0.1) K/mm3 Comprehensive Metabolic Panel 05/13/18 05/13/18 05/14/18 Range/Units 13:30 18:05 04:57 Sodium 143 143 (137-145) mmol/L Potassium 3.8 3.9 (3.6-5.0) mmol/L Chloride 106.2 107.9 H (98-107) mmol/L Carbon Dioxide 24 19 L (22-30) mmol/L BUN 14 11 (7-17) mg/dL Creatinine 0.8 0.8 (0.7-1.2) mg/dL Glucose 130 H 137 H (65-100) mg/dL Calcium 9.4 8.5 (8.4-10.2) mg/dL Direct Bilirubin < 0.2 (0-0.2) mg/dL Indirect Bilirubin 0.2 mg/dL AST 16 (5-40) units/L ALT 12 (7-56) units/L Alkaline Phosphatase 43 (35-129) units/L Total Protein 7.3 (6.3-8.2) g/dL Albumin 4.0 (3.9-5) g/dL - Imaging and Cardiology Echo: report reviewed (normal LV functionand regurgitations) Cardiac cath: report reviewed (05/01/2018 LAD patent ramus proximal 70% lesion circumflex pain and ostial OM1 80% RCA May 20 to 30 percent with normal LV function patient was deemed to treat medically given bifurcation lesions.) EKG interpretations - Telemetry EKG Rhythm: Sinus Rhythm (sinus rhythm nonspecific ST-T) Assessment and Plan Acute respiratory failure Sepsis secondary possible pneumonia Chest pain atypical cardiac enzymes ruled out Hypertension Diabetes Hyperlipidemia History of stroke Pacemaker Recommend Continue home cardiac medications and treatment for pneumonia as per the primary care team. Discussed with patient's family members at bedside about cardiac status
[2018-05-14] MEDS ORDERED: NON-FORMULARY (Hydralazine Hcl [Hydralazine Hcl] 50 MG) PO SCH (12:15)
[2018-05-14] MEDS: IMDUR PO SCH (13:45)
[2018-05-14] MEDS: PLAVIX PO SCH (14:30)
[2018-05-14] MEDS: APRESOLINE PO SCH ×2 (14:56→22:05)
[2018-05-14] MEDS: LOPRESSOR PO SCH (16:34)
[2018-05-14] MEDS: PRAVACHOL PO SCH (22:00)
[2018-05-14] MEDS ORDERED: NON-FORMULARY (Simvastatin 10 MG) PO SCH (22:00)
[2018-05-15 06:07] LABS: Basophils # (Auto) 0.1 K/mm3 (0.0-0.1); Basophils % (Auto) 0.5 % (0.0-1.8); Eosinophils # (Auto) 0.1 K/mm3 (0.0-0.4); Eosinophils % (Auto) 1.2 % (0.0-4.3); Hematocrit 34.1 % (30.3-42.9); Hemoglobin 11.2 gm/dl (10.1-14.3); Lymphocytes # (Auto) 2.1 K/mm3 (1.2-5.4); Lymphocytes % (Auto) 19.1 % (13.4-35.0); Mean Corpuscular HGB Conc 33 % (30-34); Mean Corpuscular Hemoglobin 29 pg (28-32); Mean Corpuscular Volume 88 fl (79-97); Monocytes % (Auto) 8.9 % (0.0-7.3); Platelet Count 223 K/mm3 (140-440); Red Blood Count 3.86 M/mm3 (3.65-5.03)
[2018-05-15 07:01] LABS: BUN/Creatinine Ratio 18; Blood Urea Nitrogen 14 mg/dL (7-17); Calcium 9.2 mg/dL (8.4-10.2); Hemolysis Index 6
[2018-05-15] MEDS: HumaLOG SUB-Q SCH ×3 (07:44→17:21)
[2018-05-15] MEDS ORDERED: NON-FORMULARY (Valsartan [Diovan] 320 MG) PO SCH (10:00)
[2018-05-15] MEDS: PLAVIX PO SCH (10:03)
[2018-05-15] MEDS: LOPRESSOR PO SCH (10:03)
[2018-05-15] MEDS: GLUCOPHAGE PO SCH (10:03)
[2018-05-15] MEDS: DIOVAN PO SCH (10:04)
[2018-05-15] MEDS: NORVASC PO SCH (10:05)
[2018-05-15] MEDS: APRESOLINE PO SCH (10:05)
[2018-05-15] MEDS: IMDUR PO SCH (10:06)
[2018-05-15] MEDS: LOVENOX SUB-Q SCH (10:06)
[2018-05-15] MEDS: SODIUM CHLORIDE FLUSH SYRINGE 10 ML IV SCH (10:07)
--- NOTE | 2018-05-15 10:08 | Progress Note ---
Assessment and Plan Assessment and plan: CAP. Cont. IV Levaquin, follow cultures. Serial CXR. Add robitussin and tessalon perles for cough Chest pain. Etiology prob pleuritic from above. Cardiology following. I d/w Dr. Banerjee that reports no intervention at this time. PT with recent eval that was negative. Cardiac enzymes ruled out. Add toradol Hypertension. Cont anti-hypertensive meds Diabetes type 2. Accuchecks and SSRI History of CVA. History Interval history: 87-year-old woman with a history of hypertension, diabetes, CVA presenting to the emergency room with complaints of shortness of breath, fever and a cough. She reports coughing all night Hospitalist Physical - Constitutional Vitals: Temp Pulse Resp BP Pulse Ox 99.9 F H 74 28 H 144/70 95 05/15/18 07:17 05/15/18 03:41 05/15/18 07:17 05/15/18 07:17 05/15/18 03:41 General appearance: Present: no acute distress, well-nourished - EENT Eyes: Present: PERRL, EOM intact ENT: hearing intact, clear oral mucosa, dentition normal - Neck Neck: Present: supple, normal ROM - Respiratory Respiratory effort: normal Respiratory: bilateral: diminished, rhonchi - Cardiovascular Rhythm: regular Heart Sounds: Present: S1 & S2. Absent: gallop, rub - Extremities Extremities: no ischemia, No edema, Full ROM - Abdominal General gastrointestinal: soft, non-tender, non-distended, normal bowel sounds - Integumentary Integumentary: Present: clear, warm, dry - Neurologic Neurologic: CNII-XII intact, moves all extremities Results - Labs CBC & Chem 7: 05/15/18 05:41 05/15/18 05:41 Labs: Laboratory Last Values WBC 11.0 K/mm3 (4.5-11.0) 05/15/18 05:41 RBC 3.86 M/mm3 (3.65-5.03) 05/15/18 05:41 Hgb 11.2 gm/dl (10.1-14.3) 05/15/18 05:41 Hct 34.1 % (30.3-42.9) 05/15/18 05:41 MCV 88 fl (79-97) 05/15/18 05:41 MCH 29 pg (28-32) 05/15/18 05:41 MCHC 33 % (30-34) 05/15/18 05:41 RDW 15.0 % (13.2-15.2) 05/15/18 05:41 Plt Count 223 K/mm3 (140-440) 05/15/18 05:41 Lymph % (Auto) 19.1 % (13.4-35.0) 05/15/18 05:41 [place] % (Auto) 8.9 % (0.0-7.3) H 05/15/18 05:41 Eos % (Auto) 1.2 % (0.0-4.3) 05/15/18 05:41 Baso % (Auto) 0.5 % (0.0-1.8) 05/15/18 05:41 Lymph # 2.1 K/mm3 (1.2-5.4) 05/15/18 05:41 [place] # 1.0 K/mm3 (0.0-0.8) H 05/15/18 05:41 Eos # 0.1 K/mm3 (0.0-0.4) 05/15/18 05:41 Baso # 0.1 K/mm3 (0.0-0.1) 05/15/18 05:41 Seg Neutrophils % 70.3 % (40.0-70.0) H 05/15/18 05:41 Seg Neutrophils # 7.8 K/mm3 (1.8-7.7) H 05/15/18 05:41 PT 14.3 Sec. (12.2-14.9) 05/13/18 16:44 INR 1.05 (0.87-1.13) 05/13/18 16:44 APTT 28.4 Sec. (24.2-36.6) 05/13/18 16:44 D-Dimer 435.85 ng/mlDDU (0-234) H 05/13/18 16:44 Sodium 141 mmol/L (137-145) 05/15/18 05:41 Potassium 4.1 mmol/L (3.6-5.0) 05/15/18 05:41 Chloride 106.3 mmol/L (98-107) 05/15/18 05:41 Carbon Dioxide 19 mmol/L (22-30) L 05/15/18 05:41 Anion Gap 20 mmol/L 05/15/18 05:41 BUN 14 mg/dL (7-17) 05/15/18 05:41 Creatinine 0.8 mg/dL (0.7-1.2) 05/15/18 05:41 Estimated GFR > 60 ml/min 05/15/18 05:41 BUN/Creatinine Ratio 18 % 05/15/18 05:41 Glucose 133 mg/dL (65-100) H 05/15/18 05:41 POC Glucose 132 (70-105) H 05/15/18 06:55 Lactic Acid 2.50 mmol/L (0.7-2.0) H* 05/14/18 04:57 Calcium 9.2 mg/dL (8.4-10.2) 05/15/18 05:41 Total Bilirubin 0.40 mg/dL (0.1-1.2) 05/13/18 18:05 Direct Bilirubin < 0.2 mg/dL (0-0.2) 05/13/18 18:05 Indirect Bilirubin 0.2 mg/dL 05/13/18 18:05 AST 16 units/L (5-40) 05/13/18 18:05 ALT 12 units/L (7-56) 05/13/18 18:05 Alkaline Phosphatase 43 units/L (35-129) 05/13/18 18:05 Total Creatine Kinase 91 units/L (30-135) 05/14/18 04:57 CK-MB (CK-2) 1.5 ng/mL (0.0-4.0) 05/14/18 04:57 CK-MB (CK-2) Rel Index 1.6 (0-4) 05/14/18 04:57 Troponin T 0.016 ng/mL (0.00-0.029) 05/14/18 04:57 NT-Pro-B Natriuret Pep 1678 pg/mL (0-900) H 05/13/18 18:05 Total Protein 7.3 g/dL (6.3-8.2) 05/13/18 18:05 Albumin 4.0 g/dL (3.9-5) 05/13/18 18:05 Albumin/Globulin Ratio 1.2 % 05/13/18 18:05 Lipase 33 units/L (13-60) 05/13/18 18:05 Urine Color Yellow (Yellow) 05/13/18 17:10 Urine Turbidity Clear (Clear) 05/13/18 17:10 Urine pH 5.0 (5.0-7.0) 05/13/18 17:10 Ur Specific [place] 1.018 (1.003-1.030) 05/13/18 17:10 Urine Protein 30 mg/dl mg/dL (Negative) 05/13/18 17:10 Urine Glucose (UA) Neg mg/dL (Negative) 05/13/18 17:10 Urine Ketones Neg mg/dL (Negative) 05/13/18 17:10 Urine Blood Neg (Negative) 05/13/18 17:10 Urine Nitrite Neg (Negative) 05/13/18 17:10 Urine Bilirubin Neg (Negative) 05/13/18 17:10 Urine Urobilinogen < 2.0 mg/dL (<2.0) 05/13/18 17:10 Ur Leukocyte Esterase Tr (Negative) 05/13/18 17:10 Urine WBC (Auto) 2.0 /HPF (0.0-6.0) 05/13/18 17:10 Urine RBC (Auto) 1.0 /HPF (0.0-6.0) 05/13/18 17:10 U Epithel Cells (Auto) 1.0 /HPF (0-13.0) 05/13/18 17:10 Urine Mucus Few /HPF 05/13/18 17:10
--- NOTE | 2018-05-15 10:55 | Progress Note ---
Assessment and Plan Assessment: Chest pain, atypical - AMI ruled out Non-obstructive CAD - [facility] 05/01/2018: left main patent, LAD mid 20%, RCA mid 40%, ramus disease around 70-80% and ostial OM1 difficult for intervention as it might occlude the algaaciq circ, bifurcating lesion; patient was deemed to treat medically given bifurcation lesions. Acute respiratory failure Sepsis secondary possible pneumonia Hypertension Diabetes Hyperlipidemia H/o SSS, PPM in situ Hx. of TIA/CVA Plan: Currently stable cardiac status. No plans for repeat ischemic evaluation at this time. Continue home cardiac medications and treatment for pneumonia as per the primary care team. Discussed with patient at bedside about cardiac status. Nothing further to add from cardiac perspective at this time. Will follow on as needed basis. The patient has been seen in conjunction with Dr. Eliu Aiken who agrees with the assessment and plan of care. Subjective Date of service: 05/15/18 Principal diagnosis: PNA Interval history: pt resting comfortably in bed, c/o chest pain with coughing and deep inspiration. c/o dry cough. Objective Last Vital Signs Temp 99.9 F H 05/15/18 07:17 Pulse 76 05/15/18 10:06 Resp 22 05/15/18 10:00 BP 144/70 05/15/18 10:06 Pulse Ox 95 05/15/18 03:41 - Physical Examination HEENT: Positive: PERRL, Mucus Membranes Moist Neck: Positive: neck supple, trachea midline Cardiac: Positive: Reg Rate and Rhythm, S1/S2 Lungs: Positive: Decreased Breath Sounds Neuro: Positive: Grossly Intact Abdomen: Positive: Soft, Active Bowel Sounds. Negative: Tender, Distended Skin: Positive: Clear Incision: Cardiac Cath Site Musculoskeletal: No Pain, Normal Range of Motion Extremities: Present: normal. Absent: edema - Labs and Meds CBC 05/15/18 Range/Units 05:41 WBC 11.0 (4.5-11.0) K/mm3 RBC 3.86 (3.65-5.03) M/mm3 Hgb 11.2 (10.1-14.3) gm/dl Hct 34.1 (30.3-42.9) % Plt Count 223 (140-440) K/mm3 Lymph # 2.1 (1.2-5.4) K/mm3 [place] # 1.0 H (0.0-0.8) K/mm3 Eos # 0.1 (0.0-0.4) K/mm3 Baso # 0.1 (0.0-0.1) K/mm3 Comprehensive Metabolic Panel 05/15/18 Range/Units 05:41 Sodium 141 (137-145) mmol/L Potassium 4.1 (3.6-5.0) mmol/L Chloride 106.3 (98-107) mmol/L Carbon Dioxide 19 L (22-30) mmol/L BUN 14 (7-17) mg/dL Creatinine 0.8 (0.7-1.2) mg/dL Glucose 133 H (65-100) mg/dL Calcium 9.2 (8.4-10.2) mg/dL - Imaging and Cardiology EKG: image reviewed Echo: report reviewed (normal LV functionand regurgitations) Cardiac cath: report reviewed (05/01/2018 LAD patent ramus proximal 70% lesion circumflex pain and ostial OM1 80% RCA May 20 to 30 percent with normal LV function patient was deemed to treat medically given bifurcation lesions.)
[2018-05-15] MEDS: TORADOL IV PRN (11:04)
[2018-05-15] MEDS: GUAIFENESIN DM SYRUP PO PRN (11:04)
[2018-05-15] MEDS: TESSALON PERLES PO SCH (14:12)
[2018-05-15] MEDS: TYLENOL PO PRN (16:00)
[2018-05-16] MEDS: SODIUM CHLORIDE FLUSH SYRINGE 10 ML IV SCH ×2 (00:19→10:38)
[2018-05-16] MEDS: TESSALON PERLES PO SCH (00:20)
[2018-05-16] MEDS: PRAVACHOL PO SCH (00:22)
[2018-05-16] MEDS: APRESOLINE PO SCH ×2 (00:35→09:52)
[2018-05-16] MEDS: HumaLOG SUB-Q SCH ×3 (00:36→12:02)
[2018-05-16 05:39] LABS: Basophils # (Auto) 0.1 K/mm3 (0.0-0.1); Basophils % (Auto) 0.6 % (0.0-1.8); Eosinophils # (Auto) 0.1 K/mm3 (0.0-0.4); Eosinophils % (Auto) 1.4 % (0.0-4.3); Hematocrit 30.2 % (30.3-42.9); Lymphocytes # (Auto) 1.7 K/mm3 (1.2-5.4); Lymphocytes % (Auto) 20.1 % (13.4-35.0); Mean Corpuscular HGB Conc 33 % (30-34); Mean Corpuscular Hemoglobin 29 pg (28-32); Mean Corpuscular Volume 88 fl (79-97); Monocytes # (Auto) 0.7 K/mm3 (0.0-0.8); Monocytes % (Auto) 8.2 % (0.0-7.3); Platelet Count 195 K/mm3 (140-440); Red Blood Count 3.44 M/mm3 (3.65-5.03); Red Cell Distribution Width 14.3 % (13.2-15.2)
[2018-05-16 06:01] LABS: BUN/Creatinine Ratio 19; Blood Urea Nitrogen 17 mg/dL (7-17); Calcium 8.8 mg/dL (8.4-10.2); Hemolysis Index 2
[2018-05-16] MEDS: GUAIFENESIN DM SYRUP PO PRN (08:30)
[2018-05-16] MEDS: TYLENOL PO PRN (08:31)
[2018-05-16] MEDS: TORADOL IV PRN (08:32)
[2018-05-16] MEDS: LOVENOX SUB-Q SCH (09:50)
[2018-05-16] MEDS: DIOVAN PO SCH (09:51)
[2018-05-16] MEDS: PLAVIX PO SCH (09:51)
[2018-05-16] MEDS: NORVASC PO SCH (09:51)
[2018-05-16 09:52] VITALS: BP 152/69
[2018-05-16] MEDS: LOPRESSOR PO SCH (09:52)
[2018-05-16] MEDS: GLUCOPHAGE PO SCH (10:35)
[2018-05-16] MEDS: IMDUR PO SCH (10:35)
--- NOTE | 2018-05-16 12:27 | Discharge Summary ---
Providers - Providers Date of Admission: 05/13/18 22:25 Attending physician: JOHANA FALCON MD 05/13/18 22:25 Consult to Physician [CONS] Routine Comment: Consulting Provider: JOSE MANUEL PERALES Physician Instructions: Reason For Exam: cp Primary care physician: LESLIE HUNTER Hospitalization Reason for admission: Sepsis, right middle lobe pneumonia Condition: Stable Pertinent studies: CTA patchy right middle lobe infiltrates, no PE. Hospital course: Admission H&P 87-year-old woman with a history of hypertension, diabetes, CVA causing emergency room with complaints of shortness of breath, fever and a cough. She does not know the color of the phlegm. Also complaining of chest pain on the left anterior chest and under the armpit which she describes as a sharp pain, intermittent in nature, 30 minutes, no radiation, she cannot identify exacerbating or relieving factors. Admits to nausea, shortness of breath, no diaphoresis or palpitation. Patient was admitted to the floor as a management sepsis secondary to pneumonia and was treated according to sepsis protocol. Patient showed improvement. Chest pain subsided. Cardiology evaluated and recommended against further cardiac test. Patient was hemodynamically stable. Patient discharged home. Prophylactic medication scripts were given. Disposition: DC-01 TO HOME OR SELFCARE Time spent for discharge: 31 minutes - Discharge Diagnoses (1) Pneumonia Status: Acute Qualifiers: Pneumonia type: due to unspecified organism Laterality: right Lung location: lower lobe of lung Qualified Code(s): J18.1 - Lobar pneumonia, unspecified organism (2) Shortness of breath Status: Acute (3) Chest pain Status: Chronic Qualifiers: Chest pain type: unspecified Qualified Code(s): R07.9 - Chest pain, unspecified (4) HTN (hypertension) Status: Chronic Qualifiers: Hypertension type: essential hypertension Qualified Code(s): I10 - Essential (primary) hypertension (5) Pacemaker Status: Chronic (6) Arthralgia Status: Chronic (7) CAD (coronary artery disease) Status: Chronic Qualifiers: Coronary Disease-Associated Artery/Lesion type: [place] artery [place] vs. transplanted heart: [place] heart Associated angina: with stable angina Qualified Code(s): I25.118 - Atherosclerotic heart disease of [place] coronary artery with other forms of angina pectoris (8) Status post placement of cardiac pacemaker Status: Chronic Core Measure Documentation - Palliative Care Palliative Care/ Comfort Measures: Not Applicable - Core Measures Any of the following diagnoses?: none Exam - Physical Exam Narrative exam: Not in cardiopulmonary distress. The patient is obese. Vital signs as documented. Head exam is unremarkable. No scleral icterus . Neck is without jugular venous distension, thyromegaly, or carotid bruits. Lungs are clear to auscultation. Cardiac exam reveals regular rate and Rhythm. First and second heart sounds normal. No murmurs, rubs or gallops. Abdominal exam reveals normal bowel sounds, no masses, no organomegaly and no aortic enlargement. Extremities are nonedematous and both femoral and pedal pulses are normal. DIRECTOR OF MATERNITY SERVICES: Alert and oriented 3. No focal weakness. - Constitutional Vitals: Temp Pulse Resp BP Pulse Ox 99.7 F H 76 28 H 152/69 95 05/16/18 07:51 05/16/18 10:35 05/16/18 10:00 05/16/18 10:35 05/16/18 08:51 Plan Activity: no restrictions Weight Bearing Status: Full Weight Bearing Diet: low cholesterol, low salt Follow up with: JOSE MANUEL PERALES MD [Staff Physician] - 2-3 Days PRIMARY CAREMD [Referring] - 2-3 Days Prescriptions: Benzonatate [Tessalon Perles] 100 mg PO Q8HR #20 capsule Levofloxacin [Levaquin] 750 mg PO QDAY #5 tablet
== END 2018-05-16 13:25 | disposition home health service (06) | DRG 871 ==
LOC: ED 12:44 → 4A 22:25 → 2B-ACE 05-14 10:53
PROVIDERS: ADMIT Internal Medicine; ATTEND Internal Medicine
DX: A41.9 Sepsis, unspecified organism (principal); J96.00 Acute respiratory failure, unspecified whether with hypoxia or hypercapnia; J18.9 Pneumonia, unspecified organism; E11.9 Type 2 diabetes mellitus without complications; I10 Essential (primary) hypertension; M25.50 Pain in unspecified joint; I25.10 Atherosclerotic heart disease of native coronary artery without angina pectoris; R07.89 Other chest pain; E78.5 Hyperlipidemia, unspecified; M19.90 Unspecified osteoarthritis, unspecified site; G43.909 Migraine, unspecified, not intractable, without status migrainosus; Z86.73 Personal history of transient ischemic attack (TIA), and cerebral infarction without residual deficits; Z95.0 Presence of cardiac pacemaker; Z90.710 Acquired absence of both cervix and uterus; Z88.6 Allergy status to analgesic agent; Z88.5 Allergy status to narcotic agent; Z88.0 Allergy status to penicillin; Z79.899 Other long term (current) drug therapy; Z82.49 Family history of ischemic heart disease and other diseases of the circulatory system
CPT/HCPCS: 36415; 71045; 71275; 74177; 80048; 80074; 81001; 82140; 82550; 82553; 82962; 83690; 83880; 84484; 85025; 85379; 85610; 85730; 87040; 93005; 93010; 94760; A9270-GY; J1650; J1815; J1885; J1956; J2405; J7030; Q0163; Q9967